=== PATIENT | male | born 1950 | race Caucasian/White ===

== ENCOUNTER 2022-04-13 15:16 | Emergency (ER) | payer SELFPAY ==
[~2022-04-13] VITALS: Ht 182.9 cm; Wt 99.8 kg
[2022-04-13 15:56] VITALS: BP 146/69
--- NOTE | 2022-04-13 17:00 | NUR ---
PATIENT LEFT WITHOUT BEING SEEN BY DR. DR DUVALL. NO FURTHER CARE PROVIDED FOR PATIENT.
== END 2022-04-13 17:00 | disposition left against medical advice (07) ==
LOC: EDBD 15:16 → MED 15:16
DX: Z76.1 Encounter for health supervision and care of foundling (principal); T73.0XXA Starvation, initial encounter; Z53.21 Procedure and treatment not carried out due to patient leaving prior to being seen by health care provider; X58.XXXA Exposure to other specified factors, initial encounter